=== PATIENT | male | born 1970 | race Caucasian/White ===

== ENCOUNTER → 2019-07-06 | Outpatient (CLI) | payer BC ==
[2019-07-06 07:40] LABS: Basophils # (A) 0.1 k/uL (0-0.2); Basophils % (A) 1 %; Eosinophils # (A) 0.2 k/uL (0-0.7); Eosinophils % (A) 3 %; HCT 44.8 % (39.0-53.0); HGB 14.9 gm/dL (13.0-17.5); Lymphocytes # (A) 1.6 k/uL (1.0-4.8); Lymphocytes % (A) 22 %; MCHC 33.4 g/dL (31.0-37.0); Mean Platelet Volume 11.4; Monocytes # (A) 0.4 k/uL (0-1.0); Monocytes % (A) 5 %; Neutrophils # (A) 4.6 k/uL (1.3-7.7); Neutrophils % (A) 65 %; Platelet Count 157 k/uL (150-450); RBC 5.15 m/uL (4.30-5.90); RDW 15.7 % (11.5-15.5); WBC 7.1 k/uL (3.8-10.6)
[2019-07-06 08:30] LABS: Large Platelets Present
[2019-07-06 11:15] LABS: African American GFR (CKD) 119.9 (60.0-200.0); Albumin 4.3 g/dL (3.80-4.90); Albumin/Globulin Ratio 2.05 (1.60-3.17); Anion Gap 5.4 mmol/L (4.00-12.00); BUN/Creat Ratio 26.25 Ratio (12.00-20.00); Carbon Dioxide 24.6 mmol/L (21.6-31.8); Chol/HDL Ratio 3.47; Globulin 2.1 g/dL (1.6-3.3); LDL Cholesterol,Calculated 100.4 mg/dL (0.0-131.0); Potassium 4.2 mmol/L (3.5-5.5); Total Bilirubin 0.4 mg/dL (0.3-1.2); Total Protein 6.4 g/dL (6.2-8.2); VLDL Calculation 10.6 mg/dL (5.00-40.00)
== END | disposition home or self-care (01) ==
LOC: LABWHC1 06:44
PROVIDERS: ATTEND Physician Assistant Medical
DX: I10 Essential (primary) hypertension (principal); E78.5 Hyperlipidemia, unspecified
CPT/HCPCS: 36415; 80053; 80061; 85025

== ENCOUNTER 2021-02-13 23:58 | Observation (INO) | payer BC ==
--- NOTE | 2021-02-14 01:04 | XR ---
EXAM: XR Chest, 2 Views CLINICAL HISTORY: ITS.REASON XR Reason: Chest Pain TECHNIQUE: Frontal and lateral views of the chest. COMPARISON: No relevant prior studies available. FINDINGS: Lungs: Unremarkable. No consolidation. Pleural space: Unremarkable. No pneumothorax. Heart: Mediastinal clips/CABG. Mediastinum: Unremarkable. Bones/joints: Degenerative changes of the spine with mild lower thoracic focal kyphosis. Mild anterior wedging of lower thoracic vertebrae is age-indeterminate and may be chronic. There are associated degenerative changes. Sternotomy wires. IMPRESSION: 1. No evidence of acute cardiopulmonary disease. 2. Degenerative changes of the spine with mild lower thoracic focal kyphosis. Mild anterior wedging of lower thoracic vertebrae is age- indeterminate and may be chronic.
[2021-02-14 01:22] LABS: ALT 84 U/L (4-49); AST 117 U/L (17-59); African American GFR (CKD) >90 (>60 ml/min/1.73 sqM); Albumin 4.4 g/dL (3.5-5.0); Alkaline Phosphatase 87 U/L (38-126); Anion Gap 7 mmol/L; Blood Urea Nitrogen 19 mg/dL (9-20); Calcium 9.5 mg/dL (8.4-10.2); Carbon Dioxide 30 mmol/L (22-30); Chloride 101 mmol/L (98-107); Glucose 120 mg/dL (74-99); Lipase 52 U/L (23-300); Magnesium 1.8 mg/dL (1.6-2.3); Non-African American GFR(CKD) >90 (>60 ml/min/1.73 sqM); Potassium 3.8 mmol/L (3.5-5.1); Sodium 138 mmol/L (137-145); Total Bilirubin 0.6 mg/dL (0.2-1.3); Total Protein 7.3 g/dL (6.3-8.2)
[2021-02-14 01:27] LABS: Partial Thromboplastin Time 25.3 sec (22.0-30.0); Prothrombin Time 10.3 sec (9.0-12.0)
[2021-02-14 01:47] LABS: Basophils % (A) 0 %; Eosinophils # (A) 0.2 k/uL (0-0.7); Eosinophils % (A) 2 %; HGB 14.7 gm/dL (13.0-17.5); Lymphocytes # (A) 1.4 k/uL (1.0-4.8); Lymphocytes % (A) 16 %; MCH 27.9 pg (25.0-35.0); MCHC 32.6 g/dL (31.0-37.0); MCV 85.6 fL (80.0-100.0); Mean Platelet Volume 13.2; Monocytes # (A) 0.4 k/uL (0-1.0); Monocytes % (A) 5 %; Neutrophils % (A) 76 %; Platelet Count 148 k/uL (150-450); RBC 5.26 m/uL (4.30-5.90); RDW 14.3 % (11.5-15.5); WBC 9.2 k/uL (3.8-10.6)
[2021-02-14] MEDS ORDERED: MAG HYDROX/AL HYDROX/SIMETH 30 ML, HYOSCYAMINE ELIXIR 10 ML, LIDOCAINE VISCOUS 2% 10 ML PO STA ×3 (02:55)
--- NOTE | 2021-02-14 03:16 | ED ---
Chest Pain HPI - General Chief Complaint: Chest Pain Stated Complaint: Chest pain Time Seen by Provider: 02/14/21 02:38 Source: patient Mode of arrival: ambulatory Limitations: no limitations - History of Present Illness Initial Comments: 's patient is 51-year-old man presenting to be evaluated for epigastric abdominal/chest pain. The patient states that it is sharp and constant. It did come on tonight around 9 PM after he had eaten Malag[place] food this evening. Complaint: chest pain Onset/Timin -: hour(s) Onset: during rest, after eating Pain Location: epigastric Pain Radiation: none Severity: moderate Quality: sharp Consistency: constant Improves With: nothing Worsens With: eating Anginal Symptoms: nausea Treatments Prior to Arrival: nitroglycerin (Took 2 nitroglycerin without change at all) - Related Data Allergies Allergy/AdvReac Type Severity Reaction Status Date / Time No Known Allergies Allergy Verified 02/14/21 00:09 Review of Systems ROS Statement: Those systems with pertinent positive or pertinent negative responses have been documented in the HPI. ROS Other: All systems not noted in ROS Statement are negative. Constitutional: Denies: fever, chills Respiratory: Denies: cough, dyspnea, wheezes, hemoptysis Cardiovascular: Denies: chest pain, palpitations, orthopnea, edema, syncope Gastrointestinal: Reports: abdominal pain (Epigastric pain), nausea. Denies: vomiting, diarrhea, constipation Genitourinary: Denies: dysuria, hematuria Musculoskeletal: Denies: back pain Skin: Denies: rash Neurological: Denies: headache, weakness EKG Findings - EKG Comments: EKG Findings:: Possible old lateral infarct. - EKG Results: EKG: interpreted by PAMELA, sinus rhythm (Sinus rhythm with PVC, rate 65 bpm), normal axis, normal QRS, normal ST/T Past Medical History Past Medical History: Hyperlipidemia, Hypertension, Myocardial Infarction ([place]) History of Any Multi-Drug Resistant Organisms: None Reported Past Surgical History: Coronary Bypass/CABG Past Psychological History: No Psychological Hx Reported Smoking Status: Former smoker Past Alcohol Use History: Rare Past Drug Use History: None Reported General Exam Limitations: no limitations General appearance: alert, in no apparent distress Head exam: Present: atraumatic, normocephalic Eye exam: Present: normal appearance. Absent: scleral icterus, conjunctival injection Neck exam: Present: normal inspection Respiratory exam: Present: normal lung sounds bilaterally. Absent: respiratory distress, wheezes, rales, rhonchi, stridor, chest wall tenderness, accessory muscle use Cardiovascular Exam: Present: regular rate, normal rhythm, normal heart sounds. Absent: systolic murmur, diastolic murmur, rubs, gallop GI/Abdominal exam: Present: soft. Absent: distended, tenderness, guarding, rebound, rigid, mass, pulsatile mass Extremities exam: Present: normal inspection, normal capillary refill. Absent: pedal edema, calf tenderness Back exam: Present: normal inspection. Absent: CVA tenderness (R), CVA tenderness (L) Neurological exam: Present: alert Skin exam: Present: warm, dry, intact, normal color. Absent: rash Course Vital Signs 02/14/21 02/14/21 00:06 03:20 Temperature 97.2 F L Pulse Rate 63 Respiratory 18 18 Rate Blood Pressure 143/71 O2 Sat by Pulse 98 Oximetry Disposition Referrals: Addison Gifford MD [Primary Care Provider] - 1-2 days
[2021-02-14 03:20] LABS: Anisocytosis (M) Present; Large Platelets Present; Polychromasia Present
[2021-02-14 03:21] LABS: Poikilocytosis (M) Present
[2021-02-14] MEDS ORDERED: NITROGLYCERIN SL TABS 0.4 MG TAB SUBLINGUAL PRN (03:42)
[2021-02-14] MEDS ORDERED: MORPHINE SULFATE 4 MG/ML SYRINGE IV STA (03:44)
--- NOTE | 2021-02-14 10:49 | P.CRDCN ---
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 He described the discomfort in the middle lower part of the chest as well as epigastric area. The chest discomfort is dull/sharp. No radiation to the arms or neck or shoulders or back. No associated symptoms of shortness of breath or sweating or dizziness or lightheadedness or syncope. Because of the chest discomfort he decided to come to the emergency department. He was given nitroglycerin was mild improvement in the discomfort. He also was given GI cocktail with mild improvement as well. The EKG showed sinus rhythm without any significant ST or T-wave abnormalities. The cardiac enzymes were checked and came in to be unremarkable. The rest of his blood work came in to be unremarkable. The chest x-ray did not show any acute abnormalities. Giving the patient history which includes coronary artery disease as well as multiple risk factor I'm going to schedule the patient to undergo a stress test and also an echocardiogram and we'll continue following up with him. Currently he is chest pain-free. Past Medical History Past Medical History: Hyperlipidemia, Hypertension, Myocardial Infarction ([place]) History of Any Multi-Drug Resistant Organisms: None Reported Past Surgical History: Coronary Bypass/CABG Past Psychological History: No Psychological Hx Reported Smoking Status: Former smoker Past Alcohol Use History: Rare Past Drug Use History: None Reported Medications and Allergies Home Medications Medication Instructions Recorded Confirmed Type Aspirin EC [Ecotrin Low Dose] 81 mg PO DAILY 02/14/21 02/14/21 History Atorvastatin [Lipitor] 80 mg PO DAILY 02/14/21 02/14/21 History Clopidogrel [Plavix] 75 mg PO DAILY 02/14/21 02/14/21 History Enalapril Maleate 2.5 mg PO DAILY@1600 02/14/21 02/14/21 History Metoprolol Tartrate [Lopressor] 25 mg PO BID 02/14/21 02/14/21 History Naproxen Sodium [Aleve] 220 mg PO BID PRN 02/14/21 02/14/21 History Allergies Allergy/AdvReac Type Severity Reaction Status Date / Time No Known Allergies Allergy Verified 02/14/21 06:53 Physical Exam Vitals: Vital Signs Temp Pulse Resp BP Pulse Ox 02/14/21 08:23 66 18 137/78 97 02/14/21 06:58 97.4 F L 56 L 16 90/42 98 02/14/21 04:00 72 18 144/85 95 02/14/21 03:20 18 02/14/21 00:06 97.2 F L 63 18 143/71 98 Intake and Output 02/13/21 02/14/21 02/14/21 22:59 06:59 14:59 Other: Weight 135.624 kg - Constitutional General appearance: no acute distress - Respiratory Respiratory: bilateral: CTA - Cardiovascular Rhythm: regular Heart sounds: normal: S1, S2 Results 02/14/21 00:34 02/14/21 00:38 Cardiac Enzymes 02/14/21 02/14/21 02/14/21 Range/Units 00:38 00:38 04:26 AST 117 H (17-59) U/L Troponin I <0.012 <0.012 (0.000-0.034) ng/mL 02/14/21 Range/Units 06:13 AST (17-59) U/L Troponin I <0.012 (0.000-0.034) ng/mL Coagulation 02/14/21 Range/Units 00:38 PT 10.3 (9.0-12.0) sec APTT 25.3 (22.0-30.0) sec CBC 02/14/21 Range/Units 00:34 WBC 9.2 (3.8-10.6) k/uL RBC 5.26 (4.30-5.90) m/uL Hgb 14.7 (13.0-17.5) gm/dL Hct 45.0 (39.0-53.0) % Plt Count 148 L (150-450) k/uL Comprehensive Metabolic Panel 02/14/21 Range/Units 00:38 Sodium 138 (137-145) mmol/L Potassium 3.8 (3.5-5.1) mmol/L Chloride 101 (98-107) mmol/L Carbon Dioxide 30 (22-30) mmol/L BUN 19 (9-20) mg/dL Creatinine 0.76 (0.66-1.25) mg/dL Glucose 120 H (74-99) mg/dL Calcium 9.5 (8.4-10.2) mg/dL AST 117 H (17-59) U/L ALT 84 H (4-49) U/L Alkaline Phosphatase 87 (38-126) U/L Total Protein 7.3 (6.3-8.2) g/dL Albumin 4.4 (3.5-5.0) g/dL Current Medications Generic Name Dose Route Start Last Admin Trade Name Freq PRN Reason Stop Dose Admin Aspirin 325 mg 02/15/21 09:00 Aspirin 325 Mg Tab PO DAILY [facility] Aspirin 81 mg 02/15/21 09:00 Aspirin 81 Mg PO DAILY [facility] Atorvastatin Calcium 80 mg 02/15/21 09:00 Atorvastatin 80 Mg Tab PO DAILY [facility] Clopidogrel Bisulfate 75 mg 02/15/21 09:00 Clopidogrel 75 Mg Tab PO DAILY [facility] Lisinopril 5 mg 02/14/21 16:00 Lisinopril 5 Mg Tab PO DAILY@1600 [facility] Metoprolol Tartrate 25 mg 02/14/21 21:00 Metoprolol Tartrate 25 Mg Tab PO BID [facility] Nitroglycerin 0.4 mg 02/14/21 03:42 Nitroglycerin Sl Tabs 0.4 Mg Tab SUBLINGUAL Q5M PRN Chest Pain Intake and Output 02/13/21 02/14/21 02/14/21 22:59 06:59 14:59 Other: Weight 135.624 kg 02/14/21 00:34 02/14/21 00:38 Assessment and Plan Assessment: Assessment #1 chest discomfort #2 CAD and prior revascularization #3 hypertension #4 dyslipidemia Plan #1 continue the current medical regimen #2 acute coronary event was ruled out #3 obtain a stress test #4 obtain an echocardiogram #5 follow-up with the patient
--- NOTE | 2021-02-14 11:55 | ECHOF ---
Referral Reason:CP MEASUREMENTS -------- HEIGHT: 165.1 cm WEIGHT: 151.0 kg BP: RVIDd: 2.9 cm (< 3.3) IVSd: 1.2 cm (0.6 - 1.1) LVIDd: 5.6 cm (3.9 - 5.3) LVPWd: 1.4 cm (0.6 - 1.1) IVSs: 1.9 cm LVIDs: 3.7 cm LVPWs: 1.9 cm LA Diam: 4.3 cm (2.7 - 3.8) Ao Diam: 3.6 cm (2.0 - 3.7) AV Cusp: 1.8 cm (1.5 - 2.6) LA Diam: 4.6 cm (2.7 - 3.8) MV EXCURSION: 21.757 mm (> 18.000) MV EF SLOPE: 78 mm/s (70 - 150) EPSS: 0.8 cm MV E Papito: 0.60 m/s MV DecT: 122 ms MV A Papito: 0.51 m/s MV E/A Ratio: 1.18 RAP: 5.00 mmHg RVSP: 15.06 mmHg FINDINGS -------- Sinus rhythm. Morbid Obesity This was a techncally difficult study with suboptimal views, , Lumason utilized for enhancement of im ages. The left ventricular size is normal. Left ventricular wall thickness is normal. Overall left vent ricular systolic function is low-normal with, an EF between 50 - 55 %. The right ventricle is normal in size. The left atrial size is normal. The right atrial size is normal. The aortic valve is trileaflet, and appears structurally normal. No aortic stenosis or regurgitation. Mild mitral regurgitation is present. Mild tricuspid regurgitation present. Right ventricular systolic pressure is normal at < 35 mmHg. The pulmonic valve was not well visualized. The aortic root size is normal. There is no pericardial effusion. CONCLUSIONS -------- 1. Morbid Obesity 2. This was a techncally difficult study with suboptimal views, , Lumason utilized for enhancement of images. 3. The left ventricular size is normal. 4. Left ventricular wall thickness is normal. 5. Overall left ventricular systolic function is low-normal with, an EF between 50 - 55 %. 6. The right ventricle is normal in size. 7. The left atrial size is normal. 8. The right atrial size is normal. 9. The aortic valve is trileaflet, and appears structurally normal. No aortic stenosis or regurgitati on. 10. Mild mitral regurgitation is present. 11. Mild tricuspid regurgitation present. 12. The pulmonic valve was not well visualized. 13. The aortic root size is normal. 14. There is no pericardial effusion. MOUNTER SAXOPHONES: Linh Ramirez RDCS
[2021-02-14 12:19] VITALS: TEMP 97.7
--- NOTE | 2021-02-14 12:41 | NM ---
EXAMINATION TYPE: NM stress cardiolite complete DATE OF EXAM: 02/14/2021 COMPARISON: NONE HISTORY: Chest pain. History of hypertension, tobacco use quit 10 years ago, hypercholesterolemia, pr ior heart catheterization with 3 vessel bypass, and obesity. TECHNIQUE: After the intravenous administration of 10.6 mCi Tc 99m Sestamibi - Rest images obtained 45 minutes post injection. The patient exercised using a JOVANI protocol and 1 minute prior to peak exercise was injected with 26.7 mCi Tc 99m Sestamibi - Stress images obtained 20 minutes post injecti on. FINDINGS: Targeted heart rate was achieved during performance of the study. Review of stress and rest SPECT skyler ges demonstrates diminished perfusion anteroseptal wall near the apex extending through apex on stres s and rest images consistent with area of old infarct. No convincing evidence for reversible ischemi a. Gated analysis shows normal wall motion with an estimated left ventricular ejection fraction of 54 %. Abnormal increased end-diastolic volume at 146 cc. IMPRESSION: Old infarct with dilated cardiomyopathy. No reversible ischemia.
--- NOTE | 2021-02-14 14:32 | EST ---
EXERCISE STRESS DATE OF SERVICE: 02/14/2021 AGE: 51 SEX: Male HT: 5'7" WT: 298 lbs. PROTOCOL: Jonathan STAGE: 3 DURATION OF EXERCISE: 7 minutes HEART RATE REST: 56 BLOOD PRESSURE REST: 112/60 MAXIMUM HEART RATE ACHIEVED: 152 MAXIMUM BLOOD PRESSURE: 172/50 85% MPHR: 142 100% MPHR: 167 METS: 9.1 INDICATIONS: Chest pain. CLINICAL INFORMATION: STRESS DATA: Heart rate 56, pressure is 112/60 mmHg. Baseline EKG showed sinus mechanism. The patient exercised on the treadmill according to Jonathan protocol for a total of 7 minutes and achieved 9.1 METs. Max heart rate was 152 which is about 91% of maximum predicted heart rate and maximum blood pressure was 172/50 mmHg. Clinically, the patient did not have any symptoms of chest pain or chest discomfort. The EKG did not show any significant ST or T-wave abnormalities concerning for ischemia. CONCLUSION: 1. Excellent exercise tolerance. 2. Good blood pressure and heart rate in response to exercise. 3. Normal EKG in response to exercise. MMODL / IJN: [id number] /
[2021-02-14 15:51] VITALS: BP 134/74; PULSE 80; RESP 18
[2021-02-14] MEDS ORDERED: lisinopriL 5 MG TAB PO SCH (16:00)
--- NOTE | 2021-02-14 17:40 | HP ---
HISTORY AND PHYSICAL CHIEF COMPLAINT: Burning anterior chest pain. HISTORY OF PRESENT ILLNESS: This is another admission for this 51-year-old obese Latin male. He has had a prior history of cardiac disease. He started to develop a burning epigastric pain and came to the emergency room. EKG and enzymes are normal. He had no associated diaphoresis, radiation of the pain into the neck, jaw or arm, diaphoresis, etc. REVIEW OF SYSTEMS: He has had no other complaints or symptoms. He has had no fever, chills, cough, hemoptysis, orthopnea, PND, abdominal pain, food intolerance, etc. Past medical history, family history and personal and social histories reveal that he is on enalapril, metoprolol, clopidogrel, atorvastatin, aspirin, Ventolin, and naproxen. He has had a CABG in the past in 2016. He used to smoke but does not any longer. PHYSICAL EXAMINATION: Blood pressure is 128/74 with a pulse of 69, respirations of 10. He is afebrile. In general appeared to be overweight and in no acute distress. Skin color is normal. Skin is warm, dry. Lymph nodes are not enlarged. Head, ears, eyes, nose, mouth and throat are normal. Neck veins not distended. Thyroid is not enlarged. Chest is clear. Cardiac exam is normal. No murmurs or extra sounds. The abdomen is soft and nontender without any visceromegaly or masses. Bowel sounds are present. Extremities are normal and neurologically he is intact. IMPRESSION: 1. Chest pain. 2. History of coronary artery disease. 3. Hypertension. 4. Obesity. PLAN: 1. Bedrest. 2. IV fluids. 3. Serial EKGs and enzymes. MMODL / IJN: [id number] /
[2021-02-14] MEDS ORDERED: METOPROLOL TARTRATE 25 MG TAB PO SCH (21:00)
--- NOTE | 2021-02-14 21:42 | DS ---
DISCHARGE SUMMARY CHIEF COMPLAINT: Chest pain. HISTORY OF PRESENT ILLNESS AND PHYSICAL EXAMINATION: Details of this man's history and physical can be found in the initial workup. LABORATORY STUDIES: While he was in the hospital, he had laboratory studies, details of which can be found in the laboratory section of his chart. COURSE IN THE HOSPITAL: After admission, he was placed on bedrest, started on intravenous fluids and he had serial EKGs and enzymes. They were normal. He was seen by Cardiology. It was felt that his pain was atypical and that he was stable and could be discharged. He will go home on his usual activity, diet and medication and follow up in the office in the next day or two. FINAL DIAGNOSES: 1. Left anterior chest pain. 2. History of coronary artery disease. 3. Hypertension. 4. Obesity. OPERATIONS: None. CONSULTATION: Cardiology. He is improved. JEAN CARLOS / DINESH: [id number] /
[2021-02-15] MEDS ORDERED: CLOPIDOGREL 75 MG TAB PO SCH (09:00)
[2021-02-15] MEDS ORDERED: ASPIRIN 325 MG TAB PO SCH (09:00)
[2021-02-15] MEDS ORDERED: ASPIRIN 81 MG PO SCH (09:00)
[2021-02-15] MEDS ORDERED: ATORVASTATIN 80 MG TAB PO SCH (09:00)
== END 2021-02-14 15:50 | disposition home or self-care (01) ==
LOC: EC 23:58 → 6NMEDSUR 02-14 03:43
PROVIDERS: ADMIT Family Medicine; ATTEND Family Medicine
DX: R07.89 Other chest pain (principal); I25.10 Atherosclerotic heart disease of native coronary artery without angina pectoris; I10 Essential (primary) hypertension; E78.5 Hyperlipidemia, unspecified; I08.1 Rheumatic disorders of both mitral and tricuspid valves; R10.13 Epigastric pain; R11.0 Nausea; E66.01 Morbid (severe) obesity due to excess calories; Z68.42 Body mass index [BMI] 45.0-49.9, adult; Z79.82 Long term (current) use of aspirin; Z79.02 Long term (current) use of antithrombotics/antiplatelets; Z79.1 Long term (current) use of non-steroidal anti-inflammatories (NSAID); Z79.899 Other long term (current) drug therapy; I25.2 Old myocardial infarction; Z95.1 Presence of aortocoronary bypass graft; Z87.891 Personal history of nicotine dependence; Z20.822 Contact with and (suspected) exposure to COVID-19
CPT/HCPCS: 96374; 99285; 36415; 93005; 93017; 93306; 80053; 83690; 83735; 84484; 85025; 85610; 85730; 87635; 71046; 78452; G0378; A9500; J2270; Q9950

== ENCOUNTER → 2024-07-15 | Outpatient (CLI) | payer BC ==
[2024-07-15 10:39] LABS: HGB 15.1 g/dL (13.0-17.0); MCH 28.7 pg (27.0-32.0); MCHC 32.8 g/dL (32.0-37.0); MCV 87.3 FL (80.0-97.0); Mean Platelet Volume 13.9 FL (9.5-12.2); NRBC Per 100 WBC 0 X 10*3/uL (0.00-0.01); Platelet Count 161 X 10*3/uL (140-440); RBC 5.27 X 10*6/uL (4.40-5.60); RDW 13.5 % (11.5-14.5); WBC 6.18 X 10*3/uL (4.50-10.00)
[2024-07-15 11:02] LABS: ALT 20 U/L (10-49); AST 20 U/L (14-35); Albumin 4.3 g/dL (3.8-4.9); Albumin/Globulin Ratio 1.65 Ratio (1.60-3.17); Alkaline Phosphatase 63 U/L (41-126); Blood Urea Nitrogen 22.4 mg/dL (9.0-27.0); Calcium 9.3 mg/dL (8.7-10.3); Chloride 106 mmol/L (96-109); Chol/HDL Ratio 2.27 Ratio; Globulin 2.6 g/dL (1.6-3.3); Glucose 100 mg/dL (70-110); Potassium 4.4 mmol/L (3.5-5.5); Prostate Specific Antigen 0.11 ng/mL (0.000-3.500); Sodium 139 mmol/L (135-145); Total Bilirubin 0.4 mg/dL (0.3-1.2); Total Protein 6.9 g/dL (6.2-8.2); VLDL Calculation 14.06 mg/dL (5.00-40.00)
== END | disposition home or self-care (01) ==
LOC: LABWHC1 07:20
PROVIDERS: ATTEND Internal Medicine Cardiovascular Disease
DX: Z00.00 Encounter for general adult medical examination without abnormal findings
CPT/HCPCS: 36415; 80053; 80061; 83036; 84153; 84443; 85027